=== PATIENT | female | born 1980 | race Caucasian/White ===

== ENCOUNTER 2016-09-30 16:48 | Inpatient (IN) | payer OTHER ==
[~2016-09-30] VITALS: Ht 152.4 cm; Wt 62.6 kg
[2016-09-30] VITALS (12 sets, daily range): BP systolic 111–145; BP diastolic 55–102
[~2016-09-30 16:48] MED LIST: COLACE100 MG PO; ENDOCET 5-3251 EACH PO; IBUPROFEN800 MG PO; METHADONE 22 MG/1 ML PO; MOTRIN600 MG PO; MOTRIN800 MG PO; NORCO 7.5/321 TABLET PO; PEN-VEE K,VEET500 MG PO; PERCOCET 5/31 TABLET PO; PHENERGAN25 MG PR; PREFERA-OB P1 TABLET PO; PRENATAL TABLE1 EAC3 PO; PROMETHAZINE HC25 M1 PO
[2016-09-30 17:53] LABS: HEMATOCRIT 33.4 % (36.0-46.0); MCH 30.5 PG (29.0-34.0); MCHC 34.4 G/DL (30.0-36.0); MCV 88.6 FL (83-99); MEAN PLAT.VOLUME 11.5 uM^3 (9.5-12.4); PLATELET COUNT 219 K/uL (156-360); RBC DIS.WIDTH-CV 13.5 % (11.8-14.6); RBC DIS.WIDTH-SD 43.3 % (39-53); RED BLOOD COUNT 3.77 M/uL (3.80-5.20); WHITE BLOOD COUNT 10.8 K/uL (4.1-10.2)
[2016-09-30 17:53] LABS: AMPHETAMINES QUANT VALUE 0 NG/ML; BARBITUATES QUANT VALUE 0 NG/ML; BENZODIAZEPINES QUANT VALUE 0 NG/ML; BENZODIAZEPINES, URINE SCREEN Negative (200 ng/mL); MARIJUANA QUANT VALUE 0 NG/ML; OPIATES QUANTITATIVE VALUE 0 NG/ML; PHENCYCLIDINE QUANT VALUE 0 NG/ML
[2016-09-30 18:22] LABS: EOSINOPHIL (%) 1.9 % (0-5); EOSINOPHIL COUNT 0.2 K/uL (0-0.3); IMMATURE GRANULOCYTE (%) 0.5 % (0.0-0.7); IMMATURE GRANULOCYTE COUNT 0.1 K/uL; LYMPHOCYTE COUNT 3.1 K/uL (1.0-2.8); MONOCYTE COUNT 0.8 K/uL (0-0.8); NEUTROPHIL (%) 61.1 % (45-76); NEUTROPHIL COUNT 6.6 K/uL (1.8-6.4)
[2016-09-30 18:48] LABS: PROBE CHECK PASS
[2016-10-01] VITALS (19 sets, daily range): BP systolic 114–168; BP diastolic 61–98
[2016-10-01] MEDS ORDERED: MOTRIN800 MG PO (13:46)
[2016-10-02 07:35] VITALS: BP 132/68
[2016-10-02 12:16] LABS: EOSINOPHIL COUNT 0.1 K/uL (0-0.3); HEMATOCRIT 30.6 % (36.0-46.0); IMMATURE GRANULOCYTE (%) 0.3 % (0.0-0.7); LYMPHOCYTE COUNT 3.8 K/uL (1.0-2.8); MCH 30.9 PG (29.0-34.0); MCHC 34.6 G/DL (30.0-36.0); MCV 89.2 FL (83-99); MEAN PLAT.VOLUME 11.1 uM^3 (9.5-12.4); MONOCYTE (%) 6.5 % (3-12); MONOCYTE COUNT 0.9 K/uL (0-0.8); NEUTROPHIL (%) 64.2 % (45-76); NEUTROPHIL COUNT 8.7 K/uL (1.8-6.4); PLATELET COUNT 214 K/uL (156-360); RBC DIS.WIDTH-CV 13.6 % (11.8-14.6); RBC DIS.WIDTH-SD 43.9 % (39-53); RED BLOOD COUNT 3.43 M/uL (3.80-5.20); WHITE BLOOD COUNT 13.6 K/uL (4.1-10.2)
[2016-10-02 12:48] LABS: ALKALINE PHOSPHATASE 180 IU/L (3-129); ANION GAP 7 MEQ/L (2-14); CHLORIDE 105 MEQ/L (99-109); GFR ESTIMATE (CALCULATED) > 59 mL/min/; GLUCOSE 91 mg/dL (70-99); POTASSIUM 4.3 MEQ/L (3.7-5.4); SAMPLE HEMOLYSIS CHECK 0; SAMPLE ICTERIC CHECK 0; SAMPLE LIPEMIA CHECK 0; SODIUM 137 MEQ/L (136-147); TOTAL BILIRUBIN 0.7 MG/DL (0.0-1.0); UREA NITROGEN (BUN) 7 mg/dL (9-23)
[2016-10-02 15:16] LABS: UR CREATININE CONCENTRATION 64.9 MG/DL
[2016-10-02 15:18] VITALS: BP 130/81
[2016-10-02 21:58] VITALS: BP 135/68
[2016-10-02 22:30] VITALS: BP 135/68
[2016-10-03 07:48] VITALS: BP 130/81
== END 2016-10-03 14:40 | disposition home or self-care (01) | DRG 775 ==
LOC: LDRP-OP 16:48 → 2WEST 16:49 → LDRP-OP 11-24 20:28
PROVIDERS: Midwife; Obstetrics & Gynecology
PROC: 3E033VJ Introduction of Other Hormone into Peripheral Vein, Percutaneous Approach (ICD-10-PCS; principal; 2016-09-30)
PROC: 3E0S3CZ (ICD-10-PCS; principal; 2016-09-30)
PROC: 00HU33Z Insertion of Infusion Device into Spinal Canal, Percutaneous Approach (ICD-10-PCS; principal; 2016-09-30)
PROC: 10E0XZZ Delivery of Products of Conception, External Approach (ICD-10-PCS; 2016-10-01)
DX: O60.14X0 Preterm labor third trimester with preterm delivery third trimester, not applicable or unspecified (principal); O99.324 Drug use complicating childbirth; Z3A.36 36 weeks gestation of pregnancy; Z37.0 Single live birth; O42.12 Full-term premature rupture of membranes, onset of labor more than 24 hours following rupture; O77.0 Labor and delivery complicated by meconium in amniotic fluid; O99.334 Smoking (tobacco) complicating childbirth; F17.200 Nicotine dependence, unspecified, uncomplicated; O13.4 Gestational [pregnancy-induced] hypertension without significant proteinuria, complicating childbirth; F11.90 Opioid use, unspecified, uncomplicated; O69.81X0 Labor and delivery complicated by cord around neck, without compression, not applicable or unspecified; O69.82X0 Labor and delivery complicated by other cord entanglement, without compression, not applicable or unspecified; O99.824 Streptococcus B carrier state complicating childbirth; O09.523 Supervision of elderly multigravida, third trimester
CPT/HCPCS: 80053; 82570; 84156; 85025; 87081; 87653; G0378; G0478; J1050; J2540; J3010; J7120

== ENCOUNTER 2017-08-25 08:40 | Inpatient (IN) | payer OTHER ==
[2017-08-25] VITALS (7 sets, daily range): BP systolic 91–156; BP diastolic 51–119
[~2017-08-25] VITALS: Ht 162.6 cm; Wt 53.6 kg
[2017-08-25 09:15] LABS: BASE EXCESS -9.6 mEq/L (-3 to +3); BICARBONATE 18.7 mEq/L (22-26); CARBOXY HGB 1.9 % (0-5); COMMENTS - BLOOD GASES A+C+; DEVICE 840; FI02 60 %; METHEMOGLOBIN 0.8 % (0-1.5); MODE SPONT MASK VENT; PCO2 50 mm Hg (35-45); PEEP 5 CM/H20; PO2 59 mm Hg (80-100); PRES. SUPPORT 10 CM/H2O; SITE RR; TOTAL RESP RATE 30 resp/min; pH 7.18 (7.35-7.45)
[2017-08-25 09:25] LABS: HEMATOCRIT 35.5 % (36.0-46.0); HEMOGLOBIN 12.2 G/DL (11.9-15.5); MCH 28.9 PG (29.0-34.0); MCHC 34.4 G/DL (30.0-36.0); MCV 84.1 FL (83-99); PLATELET COUNT 177 K/uL (156-360); RBC DIS.WIDTH-CV 12.9 % (11.8-14.6); RBC DIS.WIDTH-SD 39.8 % (39-53); RED BLOOD COUNT 4.22 M/uL (3.80-5.20); WHITE BLOOD COUNT 4.1 K/uL (4.1-10.2)
[2017-08-25 09:31] LABS: INTER. NORMALIZED RATIO 1.4
[2017-08-25 09:34] LABS: CHLORIDE 96 mEq/L (99-109); PTT 31.3 SEC (25-37); SODIUM 134 mEq/L (136-147)
[2017-08-25 09:35] LABS: MAGNESIUM 1.9 mg/dL (1.3-2.7)
[2017-08-25 09:36] LABS: GLUCOSE 40 mg/dL (70-99)
[2017-08-25 09:39] LABS: SERUM ETHYL ALCOHOL < 10 mg/dL
[2017-08-25 09:40] LABS: CREATININE 4.4 mg/dL (0.6-1.3); GFR ESTIMATE (CALCULATED) 12 mL/min/
[2017-08-25 09:41] LABS: UREA NITROGEN (BUN) 100 mg/dL (9-23)
[2017-08-25 09:48] LABS: TROP-I INTERPRETATION NEGATIVE; TROPONIN-I < 0.01 ng/mL (0.0-0.30)
[2017-08-25 09:59] LABS: BICARBONATE 21.4 mEq/L (22-26); CARBOXY HGB 1.7 % (0-5); PO2 51 mm Hg (80-100)
[2017-08-25 10:01] LABS: COMMENTS - BLOOD GASES A+C+; DEVICE 840; FI02 100 %; MECHANICAL RATE 16 resp/min; MODE A/C; PCO2 95 mm Hg (35-45); PEEP 5 CM/H20; SITE LR; TIDAL VOLUME 350 ML; TOTAL RESP RATE 16 resp/min; pH 6.96 (7.35-7.45)
[2017-08-25 10:11] LABS: ABS NEUTROPHIL COUNT 3.4; ANISOCYTOSIS 2+; ATYPICAL LYMPHOCYTE 4.3 %; BAND NEUTROPHILS 43.5 % (0-8.0); BURR CELLS 2+; EOSINOPHIL ABS CT 0; HYPOCHROMASIA 1+; LYMPHOCYTES 12.2 % (15.0-45.0); MACROCYTES 2+; METAMYELOCYTES 1.7 %; OVALOCYTES 1+; PLAT.SUFFICIENCY ADEQUATE; POIKILOCYTOSIS 3+; POLYCHROMASIA 1+; SEG.NEUTROPHILS 38.3 % (46.0-76.0)
[2017-08-25 10:14] LABS: APPEARANCE CLOUDY ((CLEAR)); BILIRUBIN NEGATIVE; BLOOD SMALL; COLOR AMBER ((YELLOW)); GLUCOSE (STRIP) NEGATIVE; KETONES NEGATIVE; LEUKOCYTES TRACE; NITRITE NEGATIVE; PROTEIN (STRIP) 100; SPECIFIC GRAVITY 1.015 (1.000-1.030)
[2017-08-25 10:24] LABS: AMPHETAMINE NEGATIVE (500 ng/mL); BARBITURATES NEGATIVE (200 ng/mL); BENZODIAZEPINES NEGATIVE (150 ng/mL); BUPRENORPHINE NEGATIVE (10 ng/mL); COCAINE PRESUMPTIVE POSITIVE (150 ng/mL); METHADONE PRESUMPTIVE POSITIVE (200 ng/mL); METHAMPHETAMINE NEGATIVE (500 ng/mL); OPIATES (MORPHINE) NEGATIVE (100 ng/mL); OXYCODONE NEGATIVE (100 ng/mL); PHENCYCLIDINE NEGATIVE (25 ng/mL); PROPOXYPHENE NEGATIVE (300 ng/mL); THC CANNABINOIDS NEGATIVE (50 ng/mL); TRICYCLIC ANTIDEPRESSANTS NEGATIVE (300 ng/mL)
[2017-08-25 10:35] LABS: AMORPHOUS PHOSPHATE CRYSTALS 1+; BACTERIA 2+ /HPF; EPITHELIAL CELLS 1+ /HPF; MUCUS RARE /LPF; RED BLOOD CELLS 0-5 /HPF (0-5)
[2017-08-25 11:06] LABS: BASE EXCESS -11.3 mEq/L (-3 to +3); BICARBONATE 18.8 mEq/L (22-26); CARBOXY HGB 1.6 % (0-5); METHEMOGLOBIN 0.9 % (0-1.5)
[2017-08-25 11:07] LABS: COMMENTS - BLOOD GASES A+C+; DEVICE 840; FI02 100 %; INSPIRATION TIME 0.9 seconds; MECHANICAL RATE 20 resp/min; MODE A/C; PCO2 62 mm Hg (35-45); PEEP 12 CM/H20; PO2 75 mm Hg (80-100); SITE LR; TIDAL VOLUME 500 ML; TOTAL RESP RATE 20 resp/min; pH 7.09 (7.35-7.45)
[2017-08-25 12:39] LABS: BICARBONATE 17.2 mEq/L (22-26); CARBOXY HGB 1.5 % (0-5); METHEMOGLOBIN 1.4 % (0-1.5); PCO2 53 mm Hg (35-45); PO2 66 mm Hg (80-100)
[2017-08-25 12:40] LABS: COMMENTS - BLOOD GASES A+; DEVICE 840; FI02 100 %; MECHANICAL RATE 20 resp/min; MODE AC; SITE RB; TOTAL RESP RATE 20 resp/min; pH 7.12 (7.35-7.45)
[2017-08-25 12:41] LABS: PEEP 12 CM/H20; TIDAL VOLUME 550 ML
[2017-08-25 13:20] LABS: CREATINE KINASE 700 IU/L (1-294); TOTAL CK 700 IU/L (1-294)
[2017-08-25 14:02] LABS: CK-MB 48.3 ng/mL (0.0-4.9); CKMB RELATIVE INDEX 6.9 (0.0-3.9)
[2017-08-25 15:45] LABS: BASE EXCESS -14.1 mEq/L (-3 to +3); CARBOXY HGB 1.6 % (0-5); METHEMOGLOBIN 1.6 % (0-1.5); PCO2 54 mm Hg (35-45); PO2 53 mm Hg (80-100)
[2017-08-25 15:46] LABS: pH 7.08 (7.35-7.45)
[2017-08-25 16:36] LABS: ALBUMIN 1.8 G/DL (3.2-4.8); ALKALINE PHOSPHATASE 133 IU/L (3-129); ALT (GPT) 21 IU/L (3-49); AST (GOT) 84 IU/L (2-34); CHLORIDE 101 MEQ/L (99-109); CREATININE 3.8 MG/DL (0.6-1.3); DIRECT BILIRUBIN 0.9 mg/dL (0.0-0.3); GFR ESTIMATE (CALCULATED) 14 mL/min/; MAGNESIUM 1.7 mg/dl (1.3-2.7); PHOSPHORUS 7.2 mg/dL (2.5-4.9); POTASSIUM 3.1 MEQ/L (3.7-5.4); SODIUM 136 MEQ/L (136-147); TOTAL BILIRUBIN 1.3 MG/DL (0.0-1.0); TOTAL PROTEIN 4.1 G/DL (6.4-8.3); UREA NITROGEN (BUN) 95 mg/dL (9-23)
[2017-08-25 16:42] LABS: GLUCOSE 292 mg/dL (70-99)
[2017-08-25 17:10] LABS: ABS NEUTROPHIL COUNT 3.3; ANISOCYTOSIS 1+; BAND NEUTROPHILS 35.5 % (0-8.0); EOSINOPHIL ABS CT 0; HEMATOCRIT 32.1 % (36.0-46.0); HEMOGLOBIN 10.9 G/DL (11.9-15.5); HYPOCHROMASIA 2+; LYMPHOCYTES 13.6 % (15.0-45.0); MACROCYTES 1+; MCH 29.1 PG (29.0-34.0); MCV 85.8 FL (83-99); METAMYELOCYTES 0.9 %; MONOCYTES 1.8 % (0-9.0); NRBC (%) 1.3 /100 WBC (0-0); PLAT.SUFFICIENCY ADEQUATE; PLATELET CLUMPS PRESENT - PLATELET COUNT APPEARS ADQ.; POIKILOCYTOSIS 1+; RBC DIS.WIDTH-CV 13.4 % (11.8-14.6); RBC DIS.WIDTH-SD 42.5 % (39-53); RED BLOOD COUNT 3.74 M/uL (3.80-5.20); SEG.NEUTROPHILS 48.2 % (46.0-76.0); TOX.VACUOLIZATION 3+; TOXIC GRANULATION 3+; WHITE BLOOD COUNT 3.9 K/uL (4.1-10.2)
[2017-08-25 17:13] LABS: PLATELET COUNT UNABLE TO REPORT K/uL (156-360)
[2017-08-25 17:20] LABS: BASE EXCESS -13.8 mEq/L (-3 to +3); BICARBONATE 15.6 mEq/L (22-26); CARBOXY HGB 1.6 % (0-5); METHEMOGLOBIN 1.5 % (0-1.5); PO2 55 mm Hg (80-100)
[2017-08-25 17:21] LABS: PCO2 49 mm Hg (35-45)
[2017-08-25 17:22] LABS: DEVICE 840; FI02 100 %; INSPIRATORY/EXPIRATORY RATIO 1.5:1 RATIO; MECHANICAL RATE 24 resp/min; MODE A/C VC+; PEEP 12 CM/H20; SITE A-LINE; TIDAL VOLUME 550 ML; TOTAL RESP RATE 24 resp/min; pH 7.11 (7.35-7.45)
[2017-08-25 19:41] LABS: BASE EXCESS -11.1 mEq/L (-3 to +3); BICARBONATE 16.4 mEq/L (22-26); CARBOXY HGB 1.3 % (0-5); METHEMOGLOBIN 1.5 % (0-1.5); PO2 49 mm Hg (80-100)
[2017-08-25 19:42] LABS: COMMENTS - BLOOD GASES C+; DEVICE VENT; FI02 100 %; MECHANICAL RATE 24 resp/min; MODE AC; PCO2 42 mm Hg (35-45); PEEP 12.5 CM/H20; SITE A-LINE; TIDAL VOLUME 550 ML; TOTAL RESP RATE 24 resp/min
[2017-08-26 02:05] LABS: SODIUM 139 mEq/L (136-147)
[2017-08-26 02:11] LABS: CREATININE 3.6 mg/dL (0.6-1.3); GFR ESTIMATE (CALCULATED) 15 mL/min/
[2017-08-26 02:12] LABS: UREA NITROGEN (BUN) 92 mg/dL (9-23)
[2017-08-26 02:13] LABS: CHLORIDE 110 mEq/L (99-109); GLUCOSE 76 mg/dL (70-99); POTASSIUM 4.7 mEq/L (3.7-5.4)
[2017-08-26 03:22] LABS: UR CREATININE CONCENTRATION 124.1 MG/DL
[2017-08-26 05:02] LABS: INTER. NORMALIZED RATIO 1.5
[2017-08-26 08:35] LABS: BASE EXCESS -10.7 mEq/L (-3 to +3); BICARBONATE 16.8 mEq/L (22-26); CARBOXY HGB 0.9 % (0-5); METHEMOGLOBIN 1.8 % (0-1.5); PCO2 43 mm Hg (35-45)
[2017-08-26 08:36] LABS: DEVICE VENT; FI02 90 %; PO2 109 mm Hg (80-100); SITE A LINE
[2017-08-26 08:37] LABS: MECHANICAL RATE 30 resp/min; MODE AC/VC+; PEEP 15 CM/H20; TIDAL VOLUME 400 ML; TOTAL RESP RATE 30 resp/min
[2017-08-26 08:52] LABS: HEMATOCRIT 31.1 % (36.0-46.0); HEMOGLOBIN 10.8 G/DL (11.9-15.5); MCH 29.3 PG (29.0-34.0); MCHC 34.7 G/DL (30.0-36.0); MCV 84.3 FL (83-99); NRBC (%) 0.6 /100 WBC (0-0); RBC DIS.WIDTH-CV 13.5 % (11.8-14.6); RED BLOOD COUNT 3.69 M/uL (3.80-5.20); WHITE BLOOD COUNT 25.7 K/uL (4.1-10.2)
[2017-08-26 09:19] LABS: ABS NEUTROPHIL COUNT 22.6; ANISOCYTOSIS 1+; BAND NEUTROPHILS 16.4 % (0-8.0); BURR CELLS 3+; EOSINOPHIL ABS CT 0.1; EOSINOPHILS 0.4 % (0-5.0); MACROCYTES 1+; METAMYELOCYTES 1.3 %; MONOCYTES 1.3 % (0-9.0); NUCLEATED RBC'S 0.4; PLAT.SUFFICIENCY DECREASED; POIKILOCYTOSIS 3+; SMUDGE CELLS 2.2
[2017-08-26 09:34] LABS: PLATELET COUNT 111 K/uL (156-360); SEG.NEUTROPHILS 71.6 % (46.0-76.0)
[2017-08-26 17:02] LABS: BASE EXCESS -9.7 mEq/L (-3 to +3); BICARBONATE 16.6 mEq/L (22-26); CARBOXY HGB 1.4 % (0-5)
[2017-08-26 17:03] LABS: DEVICE VENT; FI02 60 %; MODE AC; PCO2 37 mm Hg (35-45); PO2 65 mm Hg (80-100); SITE A LINE; pH 7.26 (7.35-7.45)
[2017-08-26 17:04] LABS: MECHANICAL RATE 30 resp/min; PEEP 15 CM/H20; TIDAL VOLUME 400 ML; TOTAL RESP RATE 30 resp/min
[2017-08-27 05:19] LABS: BASE EXCESS -9.4 mEq/L (-3 to +3); BICARBONATE 17.1 mEq/L (22-26); CARBOXY HGB 1.6 % (0-5); COMMENTS - BLOOD GASES C+; DEVICE VENT; FI02 50 %; MECHANICAL RATE 30 resp/min; METHEMOGLOBIN 2.1 % (0-1.5); MODE AC; PCO2 39 mm Hg (35-45); PEEP 15 CM/H20; PO2 50 mm Hg (80-100); SITE A-LINE; TIDAL VOLUME 400 ML; TOTAL RESP RATE 30 resp/min; pH 7.25 (7.35-7.45)
[2017-08-27 06:10] LABS: CREATININE 3.6 MG/DL (0.6-1.3); GFR ESTIMATE (CALCULATED) 15 mL/min/; PHOSPHORUS 3.9 mg/dL (2.5-4.9); SODIUM 143 MEQ/L (136-147); UREA NITROGEN (BUN) 90 mg/dL (9-23)
[2017-08-27 06:17] LABS: CHLORIDE 114 MEQ/L (99-109); GLUCOSE 152 mg/dL (70-99)
[2017-08-27 06:49] LABS: HEMATOCRIT 26.8 % (36.0-46.0); HEMOGLOBIN 9.4 G/DL (11.9-15.5); MCH 29.4 PG (29.0-34.0); MCHC 35.1 G/DL (30.0-36.0); MCV 83.8 FL (83-99); NRBC (%) 0.1 /100 WBC (0-0); RBC DIS.WIDTH-CV 13.9 % (11.8-14.6); RBC DIS.WIDTH-SD 42.9 % (39-53)
[2017-08-27 06:56] LABS: WHITE BLOOD COUNT 44.7 K/uL (4.1-10.2)
[2017-08-27 07:18] LABS: ABS NEUTROPHIL COUNT 43.2; ANISOCYTOSIS 3+; ATYPICAL LYMPHOCYTE 0.4 %; BAND NEUTROPHILS 3.5 % (0-8.0); BURR CELLS 3+; EOSINOPHIL ABS CT 0; HEMATOLOGY COMMENT 1 SN; IMM.PLATELET FRACTION 8.4 (1-7); MACROCYTES 3+; PLAT.SUFFICIENCY DECREASED; POIKILOCYTOSIS 3+; TARGET CELLS 2+
[2017-08-27 07:19] LABS: PLATELET COUNT 35 K/uL (156-360); SEG.NEUTROPHILS 93.1 % (46.0-76.0)
[2017-08-27 17:07] LABS: INTER. NORMALIZED RATIO 1.3
[2017-08-27 17:10] LABS: PTT 44.2 SEC (25-37)
[2017-08-28 05:01] LABS: CHLORIDE 118 mEq/L (99-109); POTASSIUM 4.1 mEq/L (3.7-5.4); SODIUM 143 mEq/L (136-147)
[2017-08-28 05:03] LABS: GLUCOSE 126 mg/dL (70-99)
[2017-08-28 05:04] LABS: ALBUMIN 1.5 g/dL (3.2-4.8); HEMATOCRIT 28.3 % (36.0-46.0); HEMOGLOBIN 9.9 G/DL (11.9-15.5); MCH 29.6 PG (29.0-34.0); MCV 84.5 FL (83-99); NRBC (%) 0.2 /100 WBC (0-0); RBC DIS.WIDTH-CV 14.6 % (11.8-14.6); RBC DIS.WIDTH-SD 44.6 % (39-53); RED BLOOD COUNT 3.35 M/uL (3.80-5.20)
[2017-08-28 05:07] LABS: CREATININE 3.7 mg/dL (0.6-1.3); GFR ESTIMATE (CALCULATED) 14 mL/min/; INTER. NORMALIZED RATIO 1.2; PHOSPHORUS 4.1 mg/dL (2.5-4.9)
[2017-08-28 05:08] LABS: PTT 40.2 SEC (25-37); TOTAL BILIRUBIN 2.3 mg/dL (0.0-1.0); UREA NITROGEN (BUN) 89 mg/dL (9-23)
[2017-08-28 05:09] LABS: ALKALINE PHOSPHATASE 279 IU/L (3-129)
[2017-08-28 05:12] LABS: ALT (GPT) 30 IU/L (3-49); AST (GOT) 75 IU/L (2-34); DIRECT BILIRUBIN 2.1 mg/dL (0.0-0.3)
[2017-08-28 05:16] LABS: MAGNESIUM 1.2 mg/dL (1.3-2.7)
[2017-08-28 05:30] LABS: BASOPHIL (%) 0.3 % (0-1); BASOPHIL COUNT 0.2 K/uL (0-0.1); EOSINOPHIL (%) 0.3 % (0-5); EOSINOPHIL COUNT 0.2 K/uL (0-0.3); IMM.PLATELET FRACTION 11.3 (1-7); LYMPHOCYTE (%) 4.4 % (15-42); MONOCYTE (%) 1.7 % (3-12); MONOCYTE COUNT 0.8 K/uL (0-0.8); NEUTROPHIL (%) 89.3 % (45-76); NEUTROPHIL COUNT 39.8 K/uL (1.8-6.4)
[2017-08-28 05:32] LABS: PLATELET COUNT 19 K/uL (156-360); WHITE BLOOD COUNT 44.7 K/uL (4.1-10.2)
[2017-08-28 05:41] LABS: CARBOXY HGB 2.2 % (0-5); COMMENTS - BLOOD GASES C+; DEVICE VENT; FI02 50 %; METHEMOGLOBIN 2.1 % (0-1.5); PCO2 42 mm Hg (35-45); PO2 49 mm Hg (80-100); SITE R ALINE; pH 7.16 (7.35-7.45)
[2017-08-28 05:42] LABS: MECHANICAL RATE 30 resp/min; MODE ACVC+; PEEP 15 CM/H20; TIDAL VOLUME 400 ML; TOTAL RESP RATE 30 resp/min
[2017-08-28 09:28] LABS: BASE EXCESS -14.1 mEq/L (-3 to +3); BICARBONATE 14.9 mEq/L (22-26); CARBOXY HGB 1.9 % (0-5); METHEMOGLOBIN 2.3 % (0-1.5); PCO2 47 mm Hg (35-45); PO2 53 mm Hg (80-100); SITE A LINE; pH 7.11 (7.35-7.45)
[2017-08-28 09:29] LABS: COMMENTS - BLOOD GASES C+; CONTINUOUS POS AIRWAY PRESSURE 5 cm H2O; DEVICE 840; FI02 100 %; MECHANICAL RATE 25 resp/min; MODE BILEVEL; PEEP 25 CM/H20; PRES. SUPPORT 30 CM/H2O; TOTAL RESP RATE 38 resp/min
[2017-08-28 13:20] LABS: BASE EXCESS -13.7 mEq/L (-3 to +3); BICARBONATE 15.2 mEq/L (22-26); CARBOXY HGB 1.8 % (0-5); METHEMOGLOBIN 2.6 % (0-1.5); PCO2 48 mm Hg (35-45)
[2017-08-28 13:21] LABS: COMMENTS - BLOOD GASES C+; DEVICE 840; FI02 100 %; INSPIRATION TIME 0.5 seconds; MECHANICAL RATE 20 resp/min; MODE BILEVEL; PO2 78 mm Hg (80-100); SITE A LINE; TOTAL RESP RATE 20 resp/min; pH 7.11 (7.35-7.45)
[2017-08-28 13:22] LABS: CONTINUOUS POS AIRWAY PRESSURE 2 cm H2O; PEEP 25 CM/H20; PRES. SUPPORT 30 CM/H2O
[2017-08-28] MEDS ORDERED: METHADONE10 MG PO (14:10)
[2017-08-29 05:24] LABS: BASOPHIL (%) 0.2 % (0-1); BASOPHIL COUNT 0.1 K/uL (0-0.1); EOSINOPHIL (%) 0.2 % (0-5); EOSINOPHIL COUNT 0.1 K/uL (0-0.3); IMMATURE GRANULOCYTE (%) 4.5 % (0.0-0.7); LYMPHOCYTE (%) 3.1 % (15-42); LYMPHOCYTE COUNT 1.3 K/uL (1.0-2.8); MONOCYTE (%) 1.1 % (3-12); MONOCYTE COUNT 0.4 K/uL (0-0.8); NEUTROPHIL (%) 90.9 % (45-76); NEUTROPHIL COUNT 37.3 K/uL (1.8-6.4)
[2017-08-29 05:36] LABS: HEMATOCRIT 25.7 % (36.0-46.0); MCH 29.4 PG (29.0-34.0); NRBC (%) 0.3 /100 WBC (0-0); RBC DIS.WIDTH-SD 45.5 % (39-53); RED BLOOD COUNT 3.06 M/uL (3.80-5.20)
[2017-08-29 05:39] LABS: BASE EXCESS -10.4 mEq/L (-3 to +3); BICARBONATE 16.8 mEq/L (22-26); CARBOXY HGB 1.8 % (0-5); METHEMOGLOBIN 2.7 % (0-1.5)
[2017-08-29 05:40] LABS: DEVICE 840; FI02 90 %; MECHANICAL RATE 20 resp/min; MODE BILEVEL; PCO2 42 mm Hg (35-45); PO2 129 mm Hg (80-100); PRESSURE CONTROL VENTILATION 25 CM H20; SITE A-LINE; TOTAL RESP RATE 29 resp/min
[2017-08-29 05:41] LABS: PEEP 2 CM/H20; PRES. SUPPORT 30 CM/H2O
[2017-08-29 05:43] LABS: pH 7.21 (7.35-7.45)
[2017-08-29 05:51] LABS: ABS NEUTROPHIL COUNT 39.6; EOSINOPHIL ABS CT 0; IMM.PLATELET FRACTION 11.7 (1-7); LYMPHOCYTES 3.5 % (15.0-45.0); SEG.NEUTROPHILS 96.5 % (46.0-76.0)
[2017-08-29 05:52] LABS: PLATELET COUNT 22 K/uL (156-360)
[2017-08-29 05:59] LABS: CHLORIDE 113 MEQ/L (99-109); CREATININE 4.2 MG/DL (0.6-1.3); GFR ESTIMATE (CALCULATED) 13 mL/min/; GLUCOSE 54 mg/dL (70-99); POTASSIUM 4.4 MEQ/L (3.7-5.4); SODIUM 147 MEQ/L (136-147); UREA NITROGEN (BUN) 93 mg/dL (9-23)
[2017-08-30 05:06] LABS: BASE EXCESS -7.3 mEq/L (-3 to +3); CARBOXY HGB 2.1 % (0-5); DEVICE VEN; FI02 55 %; MECHANICAL RATE 20 resp/min; METHEMOGLOBIN 1.7 % (0-1.5); MODE BILEVEL; PCO2 35 mm Hg (35-45); PO2 131 mm Hg (80-100); SITE ALINE; TOTAL RESP RATE 20 resp/min; pH 7.32 (7.35-7.45)
[2017-08-30 05:07] LABS: PRES. SUPPORT 5 CM/H2O
[2017-08-30 05:25] LABS: HEMATOCRIT 22.5 % (36.0-46.0); HEMOGLOBIN 7.9 G/DL (11.9-15.5); MCH 28.6 PG (29.0-34.0); MCHC 35.1 G/DL (30.0-36.0); MCV 81.5 FL (83-99); NRBC (%) 0.2 /100 WBC (0-0); PLATELET COUNT 51 K/uL (156-360); RBC DIS.WIDTH-CV 14.4 % (11.8-14.6); RBC DIS.WIDTH-SD 42.4 % (39-53); RED BLOOD COUNT 2.76 M/uL (3.80-5.20); WHITE BLOOD COUNT 38.1 K/uL (4.1-10.2)
[2017-08-30 06:02] LABS: CHLORIDE 108 MEQ/L (99-109); CREATININE 4.2 MG/DL (0.6-1.3); GFR ESTIMATE (CALCULATED) 13 mL/min/; POTASSIUM 4.3 MEQ/L (3.7-5.4); SODIUM 143 MEQ/L (136-147)
[2017-08-30 06:06] LABS: GLUCOSE 110 mg/dL (70-99); UREA NITROGEN (BUN) 109 mg/dL (9-23)
[2017-08-30 07:32] LABS: BASOPHIL (%) 0.2 % (0-1); BASOPHIL COUNT 0.1 K/uL (0-0.1); EOSINOPHIL (%) 0.5 % (0-5); EOSINOPHIL COUNT 0.2 K/uL (0-0.3); HEMATOLOGY COMMENT 1 SMEAR COMPATIBLE; IMMATURE GRANULOCYTE (%) 4.1 % (0.0-0.7); LYMPHOCYTE COUNT 1.9 K/uL (1.0-2.8); MONOCYTE COUNT 0.4 K/uL (0-0.8); NEUTROPHIL (%) 89.2 % (45-76)
[2017-08-30 09:21] LABS: BASE EXCESS -6.2 mEq/L (-3 to +3); BICARBONATE 18.6 mEq/L (22-26); CARBOXY HGB 2.6 % (0-5); COMMENTS - BLOOD GASES NAC+; DEVICE PB 840; METHEMOGLOBIN 2.1 % (0-1.5); PCO2 33 mm Hg (35-45); PO2 69 mm Hg (80-100); SITE ALINE; pH 7.36 (7.35-7.45)
[2017-08-30 09:22] LABS: FI02 50 %; MECHANICAL RATE 35 resp/min; MODE ACVC; PEEP 13 CM/H20; TIDAL VOLUME 400 ML; TOTAL RESP RATE 41 resp/min
[2017-08-31 06:30] LABS: BASOPHIL (%) 0.2 % (0-1); BASOPHIL COUNT 0.1 K/uL (0-0.1); EOSINOPHIL (%) 1.1 % (0-5); EOSINOPHIL COUNT 0.4 K/uL (0-0.3); IMMATURE GRANULOCYTE (%) 4.3 % (0.0-0.7); LYMPHOCYTE (%) 5.3 % (15-42); LYMPHOCYTE COUNT 1.7 K/uL (1.0-2.8); MONOCYTE (%) 1.2 % (3-12); MONOCYTE COUNT 0.4 K/uL (0-0.8); NEUTROPHIL (%) 87.9 % (45-76); NEUTROPHIL COUNT 28.1 K/uL (1.8-6.4); PLATELET COUNT 65 K/uL (156-360)
[2017-08-31 06:45] LABS: HEMATOCRIT 22.7 % (36.0-46.0); HEMOGLOBIN 8.2 G/DL (11.9-15.5); MCH 29.2 PG (29.0-34.0); MCHC 36.1 G/DL (30.0-36.0); MCV 80.8 FL (83-99); NRBC (%) 0.2 /100 WBC (0-0); RBC DIS.WIDTH-CV 14.2 % (11.8-14.6); RBC DIS.WIDTH-SD 41.6 % (39-53); RED BLOOD COUNT 2.81 M/uL (3.80-5.20)
[2017-08-31 06:53] LABS: WHITE BLOOD COUNT 32.3 K/uL (4.1-10.2)
[2017-08-31 07:05] LABS: CHLORIDE 107 MEQ/L (99-109); CREATININE 3.9 MG/DL (0.6-1.3); GFR ESTIMATE (CALCULATED) 14 mL/min/; GLUCOSE 116 mg/dL (70-99); MAGNESIUM 1.7 mg/dl (1.3-2.7); POTASSIUM 3.9 MEQ/L (3.7-5.4); SODIUM 146 MEQ/L (136-147)
[2017-08-31 07:08] LABS: UREA NITROGEN (BUN) 117 mg/dL (9-23)
[2017-08-31 07:09] LABS: PHOSPHORUS 6.1 mg/dL (2.5-4.9)
[2017-08-31 18:47] LABS: CHLORIDE 105 MEQ/L (99-109); CREATININE 3.7 MG/DL (0.6-1.3); GFR ESTIMATE (CALCULATED) 14 mL/min/; GLUCOSE 110 mg/dL (70-99); MAGNESIUM 1.6 mg/dl (1.3-2.7); PHOSPHORUS 5.8 mg/dL (2.5-4.9); POTASSIUM 3.8 MEQ/L (3.7-5.4); SODIUM 144 MEQ/L (136-147)
[2017-08-31 18:50] LABS: UREA NITROGEN (BUN) 114 mg/dL (9-23)
[2017-08-31 21:32] LABS: Heparin Induced Plt Ab Negative (Negative)
[2017-08-31 23:55] LABS: BASE EXCESS -0.1 mEq/L (-3 to +3); BICARBONATE 23.1 mEq/L (22-26); CARBOXY HGB 2.4 % (0-5); COMMENTS - BLOOD GASES C+; METHEMOGLOBIN 2.3 % (0-1.5); PCO2 31 mm Hg (35-45); PO2 74 mm Hg (80-100); SITE ALINE; pH 7.48 (7.35-7.45)
[2017-08-31 23:56] LABS: DEVICE VENT; FI02 50 %; MECHANICAL RATE 35 resp/min; MODE AC; PEEP 11 CM/H20; TIDAL VOLUME 450 ML; TOTAL RESP RATE 42 resp/min
[2017-09-01] VITALS (7 sets, daily range): BP systolic 93–131; BP diastolic 52–77
[2017-09-01 06:44] LABS: BASOPHIL (%) 0.2 % (0-1); BASOPHIL COUNT 0.1 K/uL (0-0.1); EOSINOPHIL (%) 1.1 % (0-5); EOSINOPHIL COUNT 0.3 K/uL (0-0.3); HEMATOCRIT 21.1 % (36.0-46.0); HEMOGLOBIN 7.5 G/DL (11.9-15.5); IMMATURE GRANULOCYTE (%) 4.3 % (0.0-0.7); LYMPHOCYTE COUNT 1.7 K/uL (1.0-2.8); MCH 28.7 PG (29.0-34.0); MCHC 35.5 G/DL (30.0-36.0); MCV 80.8 FL (83-99); MONOCYTE (%) 1.4 % (3-12); MONOCYTE COUNT 0.4 K/uL (0-0.8); NEUTROPHIL COUNT 24.3 K/uL (1.8-6.4); NRBC (%) 0.3 /100 WBC (0-0); RBC DIS.WIDTH-CV 14.1 % (11.8-14.6); RBC DIS.WIDTH-SD 40.7 % (39-53); RED BLOOD COUNT 2.61 M/uL (3.80-5.20); WHITE BLOOD COUNT 27.9 K/uL (4.1-10.2)
[2017-09-01 06:47] LABS: PLATELET COUNT 94 K/uL (156-360)
[2017-09-01 07:15] LABS: ALBUMIN 1.6 G/DL (3.2-4.8); ALKALINE PHOSPHATASE 209 IU/L (3-129); ALT (GPT) 20 IU/L (3-49); AST (GOT) 36 IU/L (2-34); CHLORIDE 106 MEQ/L (99-109); CREATININE 3.9 MG/DL (0.6-1.3); GFR ESTIMATE (CALCULATED) 14 mL/min/; GLUCOSE 102 mg/dL (70-99); MAGNESIUM 1.5 mg/dl (1.3-2.7); POTASSIUM 3.4 MEQ/L (3.7-5.4); SODIUM 145 MEQ/L (136-147); TOTAL BILIRUBIN 0.9 MG/DL (0.0-1.0); TOTAL PROTEIN 4.6 G/DL (6.4-8.3); UREA NITROGEN (BUN) 112 mg/dL (9-23)
[2017-09-01 07:56] LABS: UFH SRA Result Negative (Negative)
[2017-09-02] VITALS (7 sets, daily range): BP systolic 115–127; BP diastolic 69–84
[2017-09-02 05:39] LABS: HEMOGLOBIN 7.6 G/DL (11.9-15.5); MCHC 34.5 G/DL (30.0-36.0); NRBC (%) 0.5 /100 WBC (0-0); RBC DIS.WIDTH-CV 14.1 % (11.8-14.6); RBC DIS.WIDTH-SD 41.2 % (39-53); RED BLOOD COUNT 2.62 M/uL (3.80-5.20); WHITE BLOOD COUNT 26.1 K/uL (4.1-10.2)
[2017-09-02 05:40] LABS: PLATELET COUNT 156 K/uL (156-360)
[2017-09-02 05:59] LABS: ALBUMIN 1.7 g/dL (3.2-4.8); CHLORIDE 107 mEq/L (99-109); POTASSIUM 3.6 mEq/L (3.7-5.4); SODIUM 148 mEq/L (136-147)
[2017-09-02 06:01] LABS: GLUCOSE 115 mg/dL (70-99)
[2017-09-02 06:05] LABS: ALKALINE PHOSPHATASE 222 IU/L (3-129); CREATININE 3.7 mg/dL (0.6-1.3); GFR ESTIMATE (CALCULATED) 14 mL/min/
[2017-09-02 06:07] LABS: AST (GOT) 51 IU/L (2-34)
[2017-09-02 06:08] LABS: ALT (GPT) 27 IU/L (3-49)
[2017-09-02 06:15] LABS: TOTAL BILIRUBIN 0.6 mg/dL (0.0-1.0); TOTAL PROTEIN 4.9 g/dL (6.4-8.3); UREA NITROGEN (BUN) 114 mg/dL (9-23)
[2017-09-02 06:43] LABS: A/G RATIO 0.6 (1.1-1.8); ALBUMIN 1.7 G/DL (3.4-5.0); GLOBULINS 2.8 G/DL (2.3-3.5); MAGNESIUM 1.5 mg/dl (1.3-2.7); PHOSPHORUS 4.9 mg/dL (2.5-4.9); TOTAL PROTEIN 4.5 G/DL (6.4-8.2)
[2017-09-03] VITALS (7 sets, daily range): BP systolic 113–130; BP diastolic 58–72
[2017-09-03 04:58] LABS: HEMATOCRIT 21.1 % (36.0-46.0); HEMOGLOBIN 7.2 G/DL (11.9-15.5); MCH 29.8 PG (29.0-34.0); MCHC 34.1 G/DL (30.0-36.0); MCV 87.2 FL (83-99); NRBC (%) 0.1 /100 WBC (0-0); RBC DIS.WIDTH-CV 14.6 % (11.8-14.6); RBC DIS.WIDTH-SD 42.6 % (39-53); RED BLOOD COUNT 2.42 M/uL (3.80-5.20); WHITE BLOOD COUNT 21.9 K/uL (4.1-10.2)
[2017-09-03 05:01] LABS: PLATELET COUNT 219 K/uL (156-360)
[2017-09-03 05:13] LABS: CHLORIDE 108 mEq/L (99-109); POTASSIUM 3.2 mEq/L (3.7-5.4); SODIUM 149 mEq/L (136-147)
[2017-09-03 05:14] LABS: MAGNESIUM 1.2 mg/dL (1.3-2.7)
[2017-09-03 05:15] LABS: GLUCOSE 120 mg/dL (70-99)
[2017-09-03 05:16] LABS: TOTAL PROTEIN 4.5 g/dL (6.4-8.3)
[2017-09-03 05:17] LABS: TOTAL BILIRUBIN 0.6 mg/dL (0.0-1.0)
[2017-09-03 05:19] LABS: CREATININE 3.5 mg/dL (0.6-1.3); GFR ESTIMATE (CALCULATED) 15 mL/min/; PHOSPHORUS 4.7 mg/dL (2.5-4.9)
[2017-09-03 05:20] LABS: ALKALINE PHOSPHATASE 159 IU/L (3-129)
[2017-09-03 05:21] LABS: AST (GOT) 45 IU/L (2-34)
[2017-09-03 05:22] LABS: ALT (GPT) 23 IU/L (3-49)
[2017-09-03 05:23] LABS: UREA NITROGEN (BUN) 119 mg/dL (9-23)
[2017-09-03 16:38] LABS: BASE EXCESS 7.7 mEq/L (-3 to +3); METHEMOGLOBIN 1.6 % (0-1.5); PCO2 27 mm Hg (35-45); PO2 58 mm Hg (80-100)
[2017-09-03 16:39] LABS: BICARBONATE 29.1 mEq/L (22-26); COMMENTS - BLOOD GASES C+; DEVICE VENT; FI02 30 %; MODE SPONT; PEEP 8 CM/H20; PRES. SUPPORT 15 CM/H2O; SITE RF ALINE; TOTAL RESP RATE 40 resp/min; pH 7.64 (7.35-7.45)
[2017-09-04] VITALS (7 sets, daily range): BP systolic 116–125; BP diastolic 62–71
[2017-09-04 09:14] LABS: BASOPHIL (%) 0.3 % (0-1); EOSINOPHIL (%) 1.6 % (0-5); EOSINOPHIL COUNT 0.2 K/uL (0-0.3); HEMATOCRIT 19.9 % (36.0-46.0); IMMATURE GRANULOCYTE (%) 1.1 % (0.0-0.7); LYMPHOCYTE (%) 10.3 % (15-42); LYMPHOCYTE COUNT 1.4 K/uL (1.0-2.8); MCH 29.3 PG (29.0-34.0); MCHC 31.7 G/DL (30.0-36.0); MONOCYTE (%) 4.4 % (3-12); MONOCYTE COUNT 0.6 K/uL (0-0.8); NEUTROPHIL (%) 82.3 % (45-76); NEUTROPHIL COUNT 11.4 K/uL (1.8-6.4); RBC DIS.WIDTH-CV 18.3 % (11.8-14.6); RED BLOOD COUNT 2.15 M/uL (3.80-5.20); WHITE BLOOD COUNT 13.8 K/uL (4.1-10.2)
[2017-09-04 09:15] LABS: HEMOGLOBIN 6.3 G/DL (11.9-15.5); MCV 92.6 FL (83-99); PLATELET COUNT 320 K/uL (156-360)
[2017-09-04 09:40] LABS: ALBUMIN 2.4 G/DL (3.2-4.8); ALT (GPT) 17 IU/L (3-49); AST (GOT) 38 IU/L (2-34); CHLORIDE 114 MEQ/L (99-109); CREATININE 3.4 MG/DL (0.6-1.3); GFR ESTIMATE (CALCULATED) 16 mL/min/; GLUCOSE 122 mg/dL (70-99); POTASSIUM 3.4 MEQ/L (3.7-5.4); SODIUM 156 MEQ/L (136-147); TOTAL PROTEIN 4.9 G/DL (6.4-8.3); UREA NITROGEN (BUN) 99 mg/dL (9-23)
[2017-09-04 09:45] LABS: ALKALINE PHOSPHATASE 103 IU/L (3-129); TOTAL BILIRUBIN 0.7 MG/DL (0.0-1.0)
[2017-09-04 14:25] LABS: ALBUMIN 1.71 G/DL (3.6-4.9); ALPHA-1 GLOBULIN 0.49 G/DL (0.15-0.40); ALPHA-2 GLOBULIN 0.68 G/DL (0.45-0.85); BETA-GLOBULIN 0.54 G/DL (0.65-1.15); GAMMA-GLOBULIN 1.09 G/DL (0.60-1.35)
[2017-09-05] VITALS (29 sets, daily range): BP systolic 113–136; BP diastolic 62–76
[2017-09-05 07:38] LABS: BASOPHIL (%) 0.4 % (0-1); EOSINOPHIL (%) 1.6 % (0-5); EOSINOPHIL COUNT 0.2 K/uL (0-0.3); HEMATOCRIT 24.6 % (36.0-46.0); HEMOGLOBIN 7.9 G/DL (11.9-15.5); LYMPHOCYTE (%) 12.5 % (15-42); LYMPHOCYTE COUNT 1.2 K/uL (1.0-2.8); MCH 29.4 PG (29.0-34.0); MCHC 32.1 G/DL (30.0-36.0); MCV 91.4 FL (83-99); MONOCYTE (%) 6.6 % (3-12); MONOCYTE COUNT 0.7 K/uL (0-0.8); NEUTROPHIL (%) 77.9 % (45-76); NEUTROPHIL COUNT 7.7 K/uL (1.8-6.4); PLATELET COUNT 335 K/uL (156-360); RBC DIS.WIDTH-CV 17.1 % (11.8-14.6); RBC DIS.WIDTH-SD 44.4 % (39-53); WHITE BLOOD COUNT 9.9 K/uL (4.1-10.2)
[2017-09-05 07:46] LABS: RED BLOOD COUNT 2.69 M/uL (3.80-5.20)
[2017-09-05 08:08] LABS: ALBUMIN 2.6 G/DL (3.2-4.8); ALKALINE PHOSPHATASE 90 IU/L (3-129); ALT (GPT) 19 IU/L (3-49); AST (GOT) 37 IU/L (2-34); CHLORIDE 116 MEQ/L (99-109); CREATININE 3.1 MG/DL (0.6-1.3); GFR ESTIMATE (CALCULATED) 18 mL/min/; GLUCOSE 116 mg/dL (70-99); POTASSIUM 3.3 MEQ/L (3.7-5.4); SODIUM 157 MEQ/L (136-147); TOTAL BILIRUBIN 0.8 MG/DL (0.0-1.0); UREA NITROGEN (BUN) 86 mg/dL (9-23)
[2017-09-05 08:38] LABS: MAGNESIUM 1.5 mg/dl (1.3-2.7); PHOSPHORUS 5.4 mg/dL (2.5-4.9)
[2017-09-06] VITALS (20 sets, daily range): BP systolic 113–132; BP diastolic 63–116
[2017-09-06 05:37] LABS: CHLORIDE 119 MEQ/L (99-109); CREATININE 2.8 MG/DL (0.6-1.3); GFR ESTIMATE (CALCULATED) 20 mL/min/; GLUCOSE 134 mg/dL (70-99); POTASSIUM 3.6 MEQ/L (3.7-5.4); SODIUM 159 MEQ/L (136-147); UREA NITROGEN (BUN) 86 mg/dL (9-23)
[2017-09-06 07:03] LABS: BASOPHIL (%) 0.8 % (0-1); BASOPHIL COUNT 0.1 K/uL (0-0.1); EOSINOPHIL (%) 2.3 % (0-5); EOSINOPHIL COUNT 0.2 K/uL (0-0.3); HEMATOCRIT 30.5 % (36.0-46.0); HEMOGLOBIN 9.8 G/DL (11.9-15.5); IMMATURE GRANULOCYTE (%) 0.8 % (0.0-0.7); LYMPHOCYTE (%) 18.8 % (15-42); LYMPHOCYTE COUNT 1.9 K/uL (1.0-2.8); MCH 30.3 PG (29.0-34.0); MCHC 32.1 G/DL (30.0-36.0); MCV 94.4 FL (83-99); MONOCYTE (%) 7.1 % (3-12); MONOCYTE COUNT 0.7 K/uL (0-0.8); NEUTROPHIL (%) 70.2 % (45-76); NEUTROPHIL COUNT 6.9 K/uL (1.8-6.4); PLATELET COUNT 423 K/uL (156-360); RBC DIS.WIDTH-CV 18.6 % (11.8-14.6); RBC DIS.WIDTH-SD 49.4 % (39-53); WHITE BLOOD COUNT 9.9 K/uL (4.1-10.2)
[2017-09-06 07:04] LABS: RED BLOOD COUNT 3.23 M/uL (3.80-5.20)
[2017-09-06 15:17] LABS: CHLORIDE 118 MEQ/L (99-109); CREATININE 2.4 MG/DL (0.6-1.3); GFR ESTIMATE (CALCULATED) 24 mL/min/; GLUCOSE 102 mg/dL (70-99); PHOSPHORUS 4.9 mg/dL (2.5-4.9); POTASSIUM 3.6 MEQ/L (3.7-5.4); SODIUM 160 MEQ/L (136-147); UREA NITROGEN (BUN) 78 mg/dL (9-23)
[2017-09-06 15:18] LABS: MAGNESIUM 2.3 mg/dl (1.3-2.7)
[2017-09-07] VITALS (24 sets, daily range): BP systolic 112–126; BP diastolic 65–80
[2017-09-07 08:25] LABS: BASOPHIL (%) 0.7 % (0-1); BASOPHIL COUNT 0.1 K/uL (0-0.1); EOSINOPHIL COUNT 0.2 K/uL (0-0.3); HEMATOCRIT 28.1 % (36.0-46.0); HEMOGLOBIN 8.9 G/DL (11.9-15.5); IMMATURE GRANULOCYTE (%) 0.7 % (0.0-0.7); LYMPHOCYTE COUNT 2.2 K/uL (1.0-2.8); MCH 29.9 PG (29.0-34.0); MCHC 31.7 G/DL (30.0-36.0); MCV 94.3 FL (83-99); MONOCYTE (%) 9.4 % (3-12); MONOCYTE COUNT 0.7 K/uL (0-0.8); NEUTROPHIL (%) 57.2 % (45-76); NEUTROPHIL COUNT 4.4 K/uL (1.8-6.4); PLATELET COUNT 405 K/uL (156-360); RBC DIS.WIDTH-CV 18.6 % (11.8-14.6); RBC DIS.WIDTH-SD 50.9 % (39-53); RED BLOOD COUNT 2.98 M/uL (3.80-5.20); WHITE BLOOD COUNT 7.6 K/uL (4.1-10.2)
[2017-09-07 08:34] LABS: CHLORIDE 117 MEQ/L (99-109); POTASSIUM 3.5 MEQ/L (3.7-5.4); SODIUM 158 MEQ/L (136-147)
[2017-09-07 08:40] LABS: CREATININE 2.3 MG/DL (0.6-1.3); GFR ESTIMATE (CALCULATED) 25 mL/min/; GLUCOSE 115 mg/dL (70-99); UREA NITROGEN (BUN) 59 mg/dL (9-23)
[2017-09-08] VITALS (24 sets, daily range): BP systolic 113–133; BP diastolic 65–85
[2017-09-08 06:05] LABS: BASOPHIL (%) 1.2 % (0-1); BASOPHIL COUNT 0.1 K/uL (0-0.1); EOSINOPHIL (%) 3.2 % (0-5); EOSINOPHIL COUNT 0.2 K/uL (0-0.3); HEMATOCRIT 33.2 % (36.0-46.0); HEMOGLOBIN 10.5 G/DL (11.9-15.5); IMMATURE GRANULOCYTE (%) 0.4 % (0.0-0.7); LYMPHOCYTE (%) 38.5 % (15-42); LYMPHOCYTE COUNT 2.6 K/uL (1.0-2.8); MCH 30.3 PG (29.0-34.0); MCHC 31.6 G/DL (30.0-36.0); MONOCYTE (%) 8.3 % (3-12); MONOCYTE COUNT 0.6 K/uL (0-0.8); NEUTROPHIL (%) 48.4 % (45-76); NEUTROPHIL COUNT 3.3 K/uL (1.8-6.4); PLATELET COUNT 356 K/uL (156-360); RBC DIS.WIDTH-CV 18.6 % (11.8-14.6); RBC DIS.WIDTH-SD 57.6 % (39-53); RED BLOOD COUNT 3.46 M/uL (3.80-5.20); WHITE BLOOD COUNT 6.8 K/uL (4.1-10.2)
[2017-09-08 06:39] LABS: CHLORIDE 110 MEQ/L (99-109); GLUCOSE 105 mg/dL (70-99); PHOSPHORUS 3.8 mg/dL (2.5-4.9); POTASSIUM 3.6 MEQ/L (3.7-5.4); SODIUM 151 MEQ/L (136-147); UREA NITROGEN (BUN) 46 mg/dL (9-23)
[2017-09-08 06:40] LABS: CREATININE 1.7 MG/DL (0.6-1.3); GFR ESTIMATE (CALCULATED) 36 mL/min/; MAGNESIUM 1.9 mg/dl (1.3-2.7)
[2017-09-09] VITALS: BP 119/78
[2017-09-09 03:37] VITALS: BP 123/89
[2017-09-09 07:54] LABS: ALBUMIN 2.7 G/DL (3.2-4.8); ALKALINE PHOSPHATASE 88 IU/L (3-129); ALT (GPT) 23 IU/L (3-49); AST (GOT) 29 IU/L (2-34); CHLORIDE 108 MEQ/L (99-109); CREATININE 1.5 MG/DL (0.6-1.3); GFR ESTIMATE (CALCULATED) 41 mL/min/; GLUCOSE 102 mg/dL (70-99); POTASSIUM 3.3 MEQ/L (3.7-5.4); SODIUM 146 MEQ/L (136-147); TOTAL BILIRUBIN 0.7 MG/DL (0.0-1.0); TOTAL PROTEIN 5.3 G/DL (6.4-8.3); UREA NITROGEN (BUN) 33 mg/dL (9-23)
[2017-09-09 08:00] VITALS: BP 125/76
[2017-09-09 10:56] VITALS: BP 132/78
[2017-09-09 15:25] VITALS: BP 123/83
[2017-09-09 20:09] VITALS: BP 119/79
[2017-09-10] VITALS (7 sets, daily range): BP systolic 122–152; BP diastolic 77–94
[2017-09-10 06:49] LABS: BASOPHIL (%) 1.4 % (0-1); BASOPHIL COUNT 0.1 K/uL (0-0.1); EOSINOPHIL (%) 4.1 % (0-5); EOSINOPHIL COUNT 0.3 K/uL (0-0.3); HEMATOCRIT 34.8 % (36.0-46.0); HEMOGLOBIN 10.9 G/DL (11.9-15.5); IMMATURE GRANULOCYTE (%) 0.4 % (0.0-0.7); MCH 28.9 PG (29.0-34.0); MCHC 31.3 G/DL (30.0-36.0); MCV 92.3 FL (83-99); MONOCYTE (%) 8.7 % (3-12); MONOCYTE COUNT 0.6 K/uL (0-0.8); NEUTROPHIL (%) 45.4 % (45-76); NEUTROPHIL COUNT 3.4 K/uL (1.8-6.4); PLATELET COUNT 415 K/uL (156-360); RBC DIS.WIDTH-CV 17.4 % (11.8-14.6); RBC DIS.WIDTH-SD 54.7 % (39-53); RED BLOOD COUNT 3.77 M/uL (3.80-5.20); WHITE BLOOD COUNT 7.4 K/uL (4.1-10.2)
[2017-09-10 07:08] LABS: ALBUMIN 2.8 G/DL (3.2-4.8); ALKALINE PHOSPHATASE 99 IU/L (3-129); ALT (GPT) 23 IU/L (3-49); AST (GOT) 28 IU/L (2-34); CHLORIDE 110 MEQ/L (99-109); CREATININE 1.4 MG/DL (0.6-1.3); GFR ESTIMATE (CALCULATED) 44 mL/min/; GLUCOSE 97 mg/dL (70-99); POTASSIUM 3.6 MEQ/L (3.7-5.4); SODIUM 147 MEQ/L (136-147); TOTAL BILIRUBIN 0.8 MG/DL (0.0-1.0); TOTAL PROTEIN 5.8 G/DL (6.4-8.3); UREA NITROGEN (BUN) 26 mg/dL (9-23)
[2017-09-10 09:52] LABS: IMM.RETIC FRACTION 5.6 % (3-19); RETIC HGB EQUIVALENT 33.7 (28-36)
[2017-09-10 11:11] LABS: FERRITIN 349 NG/ML (10-291); IRON 76 MCG/DL (35-150); MAGNESIUM 1.6 mg/dl (1.3-2.7); TRANSFERRIN (TIBC) 192.5 mg/dL (215-380); TRANSFERRIN SATUR. 39 % (20-55)
[2017-09-10 11:35] LABS: FOLIC ACID (FOLATE) > 22.0 NG/ML (5.0-22.0)
[2017-09-10 14:00] LABS: STOOL OCCULT BLD 1ST SPECIMEN NEGATIVE
[2017-09-10 14:28] LABS: C DIFF TOXIN NEGATIVE (NEGATIVE)
[2017-09-11 04:50] VITALS: BP 136/64
[2017-09-11 08:32] VITALS: BP 123/89
[2017-09-11 08:57] LABS: BASOPHIL (%) 1.2 % (0-1); BASOPHIL COUNT 0.1 K/uL (0-0.1); EOSINOPHIL (%) 3.7 % (0-5); EOSINOPHIL COUNT 0.3 K/uL (0-0.3); HEMATOCRIT 39.2 % (36.0-46.0); HEMOGLOBIN 12.4 G/DL (11.9-15.5); IMMATURE GRANULOCYTE (%) 0.4 % (0.0-0.7); LYMPHOCYTE (%) 39.8 % (15-42); LYMPHOCYTE COUNT 2.9 K/uL (1.0-2.8); MCH 29.2 PG (29.0-34.0); MCHC 31.6 G/DL (30.0-36.0); MCV 92.5 FL (83-99); MONOCYTE (%) 6.9 % (3-12); MONOCYTE COUNT 0.5 K/uL (0-0.8); NEUTROPHIL COUNT 3.5 K/uL (1.8-6.4); PLATELET COUNT 363 K/uL (156-360); RBC DIS.WIDTH-CV 17.3 % (11.8-14.6); RBC DIS.WIDTH-SD 56.6 % (39-53); RED BLOOD COUNT 4.24 M/uL (3.80-5.20); WHITE BLOOD COUNT 7.3 K/uL (4.1-10.2)
[2017-09-11 09:17] LABS: ALBUMIN 3.4 G/DL (3.2-4.8); CHLORIDE 110 MEQ/L (99-109); POTASSIUM 4.2 MEQ/L (3.7-5.4); SODIUM 145 MEQ/L (136-147)
[2017-09-11 09:23] LABS: CREATININE 1.2 MG/DL (0.6-1.3); GFR ESTIMATE (CALCULATED) 53 mL/min/; GLUCOSE 97 mg/dL (70-99); UREA NITROGEN (BUN) 21 mg/dL (9-23)
[2017-09-11 12:34] VITALS: BP 128/87
[2017-09-11 17:42] VITALS: BP 131/91
[2017-09-11 19:09] VITALS: BP 108/77
[2017-09-12 00:11] VITALS: BP 123/77
[2017-09-12 04:04] VITALS: BP 131/83
[2017-09-12 08:06] VITALS: BP 127/84
[2017-09-12 10:27] LABS: BASOPHIL (%) 0.9 % (0-1); BASOPHIL COUNT 0.1 K/uL (0-0.1); EOSINOPHIL (%) 4.1 % (0-5); EOSINOPHIL COUNT 0.4 K/uL (0-0.3); HEMATOCRIT 37.3 % (36.0-46.0); HEMOGLOBIN 12.7 G/DL (11.9-15.5); IMMATURE GRANULOCYTE (%) 0.6 % (0.0-0.7); LYMPHOCYTE (%) 40.1 % (15-42); LYMPHOCYTE COUNT 3.4 K/uL (1.0-2.8); MCH 30.5 PG (29.0-34.0); MCV 89.7 FL (83-99); MONOCYTE (%) 6.7 % (3-12); MONOCYTE COUNT 0.6 K/uL (0-0.8); NEUTROPHIL (%) 47.6 % (45-76); PLATELET COUNT 332 K/uL (156-360); RBC DIS.WIDTH-CV 17.4 % (11.8-14.6); RBC DIS.WIDTH-SD 54.5 % (39-53); RED BLOOD COUNT 4.16 M/uL (3.80-5.20); WHITE BLOOD COUNT 8.5 K/uL (4.1-10.2)
[2017-09-12 10:42] LABS: ALBUMIN 3.4 G/DL (3.2-4.8); CHLORIDE 109 MEQ/L (99-109); POTASSIUM 4.1 MEQ/L (3.7-5.4); SODIUM 141 MEQ/L (136-147)
[2017-09-12 10:48] LABS: CREATININE 1.1 MG/DL (0.6-1.3); GFR ESTIMATE (CALCULATED) 59 mL/min/; GLUCOSE 96 mg/dL (70-99); PHOSPHORUS 4.9 mg/dL (2.5-4.9); UREA NITROGEN (BUN) 17 mg/dL (9-23)
== END 2017-09-12 10:49 | disposition left against medical advice (07) | DRG 870 ==
LOC: EME 08:40 → 4WEST 10:28 → EDOF 10:28 → ENRESERV 10:29 → EDOF 10:36 → ENRESERV 10:50 → 4WEST 11:53 → ENRESERV 09-08 18:04 → CANRESERV 09-08 18:04 → ENRESERV 09-08 18:05 → 3EAST 09-09 03:25
PROVIDERS: Emergency Medicine; Hospitalist; Internal Medicine Critical Care Medicine; Obstetrics & Gynecology; Specialist; Surgery
DX: A41.9 Sepsis, unspecified organism (principal); J18.0 Bronchopneumonia, unspecified organism; R65.21 Severe sepsis with septic shock; J96.02 Acute respiratory failure with hypercapnia; J96.01 Acute respiratory failure with hypoxia; F11.20 Opioid dependence, uncomplicated; F14.129 Cocaine abuse with intoxication, unspecified; N17.0 Acute kidney failure with tubular necrosis; J69.0 Pneumonitis due to inhalation of food and vomit; Z90.49 Acquired absence of other specified parts of digestive tract; K21.9 Gastro-esophageal reflux disease without esophagitis; R01.1 Cardiac murmur, unspecified; F17.200 Nicotine dependence, unspecified, uncomplicated; L89.621 Pressure ulcer of left heel, stage 1; L89.611 Pressure ulcer of right heel, stage 1; L89.891 Pressure ulcer of other site, stage 1; S21.119A Laceration without foreign body of unspecified front wall of thorax without penetration into thoracic cavity, initial encounter; S09.8XXA Other specified injuries of head, initial encounter; R53.83 Other fatigue; R64 Cachexia; R13.10 Dysphagia, unspecified; J15.4 Pneumonia due to other streptococci; E16.2 Hypoglycemia, unspecified; R68.0 Hypothermia, not associated with low environmental temperature; E83.51 Hypocalcemia; D64.9 Anemia, unspecified; D69.6 Thrombocytopenia, unspecified; E83.39 Other disorders of phosphorus metabolism; G93.40 Encephalopathy, unspecified; R06.82 Tachypnea, not elsewhere classified; J13 Pneumonia due to Streptococcus pneumoniae; E87.6 Hypokalemia; E83.42 Hypomagnesemia; E87.0 Hyperosmolality and hypernatremia; K42.9 Umbilical hernia without obstruction or gangrene; F43.23 Adjustment disorder with mixed anxiety and depressed mood; E87.4 Mixed disorder of acid-base balance; F14.10 Cocaine abuse, uncomplicated; R19.7 Diarrhea, unspecified; Z68.20 Body mass index [BMI] 20.0-20.9, adult
CPT/HCPCS: 36600; 70450; 71010; 71250; 76770; 80048; 80048 91; 80053; 80069; 80076; 80202; 81003; 82272; 82330; 82533 91; 82550 91; 82553; 82570; 82607; 82728; 82746; 82803; 82948; 83540; 83605; 83735; 83880; 84100; 84165; 84300; 84466; 84484; 84999; 85025; 85025 91; 85027; 85045; 85610; 85730; 86022 90; 86850; 86900; 86901; 86920; 87040; 87070; 87077; 87086; 87147; 87181; 87186; 87205; 87493; 87641; 87801; 90686; 92526 GN; 92610 GN; 93005; 93306; 94002; 94003; 94640; 94640 76; 94760; 94799; 95819; 97530 GO; 97530 GP; 99202; 99281; 99285; C1751; C1753; G0480; J0610; J0692; J0696; J1644; J1940; J1956; J2060; J2250; J2405; J2543; J2704; J3010; J3370; J3475; J3480; J7030; J7040; J7050; J7070; J7120; P9016; P9047; S0028; S0030